=== PATIENT | male | born 1930 | race Caucasian/White ===

== ENCOUNTER 2021-08-06 13:30 | Emergency (ER) | payer OTHER ==
[2021-08-06] MEDS ORDERED: Sodium Chloride 0.9% 10 ML Syringe FLUSH PRN (14:12)
[2021-08-06 15:05] LABS: CORONAVIRUS COVID-19 NAA NEGATIVE (NEGATIVE)
[2021-08-06] MEDS ORDERED: cefTRIAXone 1 GM in Sodium Chloride 0.9% 50 ML IV ONE (15:24)
[2021-08-06] MEDS ORDERED: Azithromycin 500 MG in Sodium Chloride 0.9% 250 ML IV ONE (15:24)
[2021-08-06] MEDS ORDERED: Oseltamivir 75 MG Cap PO ONE (15:26)
[2021-08-06] MEDS ORDERED: Enoxaparin 100 MG/1 ML Syringe SUBCUT SCH (19:00)
== END 2021-08-06 20:00 ==
LOC: JP.ED 13:30
DX: J11.1 Influenza due to unidentified influenza virus with other respiratory manifestations (principal); J18.9 Pneumonia, unspecified organism; I11.0 Hypertensive heart disease with heart failure; I50.9 Heart failure, unspecified; R09.02 Hypoxemia; Z79.82 Long term (current) use of aspirin; Z79.01 Long term (current) use of anticoagulants; Z79.899 Other long term (current) drug therapy; Z87.891 Personal history of nicotine dependence
CPT/HCPCS: 0241U; 36415; 71045; 71045-26; 80048; 80076; 83605; 83880; 85025; 85610; 86140; 96365; 96367; 96372; 99284; 99285-25; A9270-GY; J0456; J0696; J1650; J7050